=== PATIENT | female | born 1955 | race Caucasian/White ===

== ENCOUNTER 2023-05-27 14:53 | Emergency (ER) | payer MEDICAID ==
[~2023-05-27] VITALS: Ht 157.5 cm; Wt 74.8 kg
[2023-05-27 15:53] LABS: BASOPHILS # (AUTO) 0.1 K/UL (0.0-0.2); BASOPHILS % (AUTO) 0.6 % (0.0-2.0); EOSINOPHILS # (AUTO) 0.1 K/uL (0.0-0.7); EOSINOPHILS % (AUTO) 0.8 % (0.0-7.0); HEMATOCRIT 28.8 % (31.2-41.9); HEMOGLOBIN 9.4 g/dL (10.9-14.3); LYMPHOCYTES # (AUTO) 1.1 K/uL (0.8-4.8); LYMPHOCYTES % (AUTO) 14.2 % (20.5-51.5); MEAN CORPUSCULAR HEMOGLOBIN 27.8 uug (24.7-32.8); MEAN CORPUSCULAR HGB CONC 33 g/dL (32.3-35.6); MEAN CORPUSCULAR VOLUME 84.9 fL (75.5-95.3); MONOCYTES # (AUTO) 0.7 K/uL (0.1-1.30); MONOCYTES % (AUTO) 8.5 % (0.0-11.0); NEUTROPHILS # (AUTO) 6.1 K/uL (1.8-8.9); NEUTROPHILS % (AUTO) 75.9 % (38.5-71.5); PLATELET COUNT (AUTO) 162 K/uL (179-408); RED BLOOD CELL COUNT(AUTO) 3.39 MIL/uL (3.63-4.92); RED CELL DISTRIBUTION WIDTH 16.8 % (12.3-17.7); WHITE BLOOD COUNT (AUTO) 8.1 K/uL (3.8-11.8)
[2023-05-27 15:57] LABS: DIFFERENTIAL COMMENT 1
[2023-05-27] MEDS: IV NORMAL SALINE 500 ML BAG IV ONE (16:03)
[2023-05-27 16:23] LABS: ALANINE AMINOTRANSFERASE 25 U/L (14-59); ALBUMIN 3.2 g/dL (3.4-5.0); ALKALINE PHOSPHATASE 107 U/L (50-136); ASPARTATE AMINOTRANSFERASE 17 U/L (15-37); BILIRUBIN,DIRECT 0.2 mg/dL (0.0-0.2); BILIRUBIN,TOTAL 0.3 mg/dL (0.2-1.0); CALCIUM 6.6 mg/dL (8.5-10.1); CARBON DIOXIDE 16 mmol/L (21-32); CHLORIDE 103 mmol/L (98-107); CREATININE 3.8 mg/dL (0.6-1.3); GLUCOSE 157 mg/dL (74-106); POTASSIUM 3.5 mmol/L (3.5-5.1); SODIUM SERUM 140 mmol/L (136-145); TOTAL PROTEIN, SERUM 6.9 g/dL (6.4-8.2)
[2023-05-27 16:30] LABS: UREA NITROGEN, BLOOD 114 mg/dL (7-18)
[2023-05-27 19:21] VITALS: BP 112/80; TEMP 98; O2SAT 99
== END 2023-05-27 19:21 | disposition home or self-care (01) ==
LOC: EDBD 14:56 → ER 14:56
DX: R53.83 Other fatigue (principal)
CPT/HCPCS: 99285; 96360; 71045; 96361; 80076; 80048; 85025; 85730; 87040; 84484; 36415; 93005; 83605; J7040; A4606; A4663